=== PATIENT | female | born 1960 | race Caucasian/White ===

== ENCOUNTER 2022-08-04 20:14 | Emergency (ER) | payer BC, OTHER ==
[2022-08-04 20:26] VITALS: BP 148/95; PULSE 90; RESP 18; TEMP 98.1
[2022-08-04] MEDS ORDERED: ACETAMINOPHEN 325 MG TABLET (FP) PO ONE (20:48)
[2022-08-04] MEDS ORDERED: ACETAMINOPHEN 325 MG TABLET (FP) ONE (21:03)
[2022-08-04 21:53] LABS: EPI CELLS 9 /uL (0-25.1); HYALINE CASTS 2 /uL (0-3.1); PH,URINE 5.5 (5.0-8.0); URINE APPEARANCE CLEAR; URINE BACTERIA 1237 /uL (0-1359); URINE BILIRUBIN NEGATIVE (NEGATIVE); URINE COLOR YELLOW; URINE GLUCOSE (UA) NEGATIVE (NEGATIVE); URINE KETONE NEGATIVE (NEGATIVE); URINE LEUK ESTERASE 2+ (NEGATIVE); URINE NITRITE NEGATIVE (NEGATIVE); URINE PROTEIN NEGATIVE (NEGATIVE); URINE RBC 122 /uL (0-23.9); URINE UROBILINOGEN 0.2 mg/dL (0.2-1.0); URINE WBC 962 /uL (0-25.8)
[2022-08-04] MEDS ORDERED: CEPHALEXIN MONOHYDRATE 500 MG CAPSULE (UD) PO ONE (22:16)
[2022-08-04] MEDS ORDERED: CEPHALEXIN MONOHYDRATE 500 MG CAPSULE (UD) ONE (22:19)
== END 2022-08-04 22:40 | disposition home or self-care (01) ==
LOC: JER 20:14
DX: N30.00 Acute cystitis without hematuria (principal)
CPT/HCPCS: 81003; 87086; 87186; 99283-25

== ENCOUNTER 2024-07-06 15:01 | Emergency (ER) | payer OTHER ==
[2024-07-06 15:14] VITALS: BP 118/98; PULSE 94; RESP 18; TEMP 99.3; BMI 29.9
[2024-07-06 16:52] LABS: BASO % 0.3 % (0-2.0); HEMATOCRIT 40.2 % (32.4-45.2); HEMOGLOBIN 13.6 GM/dL (10.7-15.3); LYMPH % 22.7 % (8-40); MCH 31.8 pg (25.7-33.7); MCHC 33.8 g/dl (32.0-36.0); MEAN CELL VOLUME 94.1 fl (80-96); MEAN PLT VOLUME 9.3 fl (7.5-11.1); MONO % 11.6 % (3.8-10.2); NEUT % 64.4 % (42.8-82.8); PLATELET COUNT 287 10^3/uL (134-434); RBC 4.27 M/mm3 (3.60-5.2); RDW 13.9 % (11.6-15.6); WHITE BLOOD COUNT 4.1 K/mm3 (4.0-10.0)
[2024-07-06 16:56] LABS: EPI CELLS 36 /uL (0-25.1); HYALINE CASTS 3 /uL (0-3.1); PH,URINE 5.5 (5.0-8.0); URINE APPEARANCE CLEAR; URINE BACTERIA 764 /uL (0-1359); URINE BILIRUBIN NEGATIVE (NEGATIVE); URINE COLOR DK YELLOW; URINE GLUCOSE (UA) NEGATIVE (NEGATIVE); URINE KETONE TRACE (NEGATIVE); URINE LEUK ESTERASE NEGATIVE (NEGATIVE); URINE NITRITE NEGATIVE (NEGATIVE); URINE PROTEIN 1+ (NEGATIVE); URINE WBC 29 /uL (0-25.8)
[2024-07-06 17:00] LABS: INR 1.11 (0.83-1.09); PROTHROMBIN TIME (PATIENT) 12.7 SEC (9.7-13.0)
[2024-07-06 17:05] LABS: URINE RBC 29.3 /uL (0-23.9)
[2024-07-06 17:19] LABS: POTASSIUM 3.7 mmol/L (3.5-5.1)
[2024-07-06 17:21] LABS: ALBUMIN 3.4 g/dl (3.4-5.0); CALCIUM 8.8 mg/dL (8.5-10.1)
[2024-07-06 17:22] LABS: BLOOD UREA NITROGEN 14.3 mg/dL (7-18)
[2024-07-06 17:24] LABS: CREATININE 0.6 mg/dL (0.55-1.3)
[2024-07-06 17:26] LABS: BILIRUBIN,TOTAL 0.4 mg/dL (0.2-1); TOT PROT 6.9 g/dl (6.4-8.2)
== END 2024-07-06 20:27 | disposition home or self-care (01) ==
LOC: JER 15:01
DX: K52.9 Noninfective gastroenteritis and colitis, unspecified (principal); R10.31 Right lower quadrant pain; R11.10 Vomiting, unspecified
CPT/HCPCS: 36415; 74177-TC; 80053; 81003; 83690; 85025; 85610; 86850; 86900; 86901; 87086; 99285-25; Q9967